=== PATIENT | female | born 1990 | race Two or more races ===

== ENCOUNTER 2019-07-01 20:51 | Emergency (ER) | payer OTHER ==
[~2019-07-01] VITALS: Ht 180.3 cm; Wt 74.2 kg
[2019-07-01] MEDS ORDERED: PROPARACAINE OPHTH 0.5%, 15ML ONE (22:02)
[2019-07-01] MEDS ORDERED: FLUORESCEIN OPHTHALMIC 1 MG STRIP ONE (22:02)
[2019-07-01] MEDS ORDERED: BUPIVACAINE 0.25% ONE (22:22)
[2019-07-01] MEDS ORDERED: LIDOCAINE-MPF 1%, 5ML ONE (22:22)
[2019-07-01] MEDS ORDERED: ONDANSETRON ODT 8 MG ONE (22:36)
[2019-07-01 22:37] LABS: BASOPHILS # (AUTO) 0.02 x10^3/uL (0-0.1); BASOPHILS % (AUTO) 0 % (0-1); EOSINOPHILS # (AUTO) 0.03 x10^3/uL (0-0.4); EOSINOPHILS % (AUTO) 0 % (1-7); LYMPHOCYTES # (AUTO) 0.98 x10^3/uL (1-3.4); LYMPHOCYTES % (AUTO) 13 % (22-44); MD NO; MEAN CORPUSCULAR HEMOGLOBIN 23.6 pg (27.0-34.8); MEAN CORPUSCULAR HGB CONC 31.2 g/dL (32.4-35.8); MEAN CORPUSCULAR VOLUME 75.6 fL (80-100); MEAN PLATELET VOLUME 7.2 fL (7.4-10.4); MONOCYTES # (AUTO) 0.62 x10^3/uL (0.2-0.8); MONOCYTES % (AUTO) 8 % (2-9); NEUTROPHILS # (AUTO) 6.22 x10^3/uL (1.8-6.8); NEUTROPHILS % (AUTO) 79 % (42-75); PLATELET COUNT 399 x10^3/uL (130-400); RED BLOOD COUNT 4.33 x10^6/uL (3.82-5.3)
--- NOTE | 2019-07-01 22:38 | NUR ---
PATIENT MEDICATED FOR NAUSEA.
[2019-07-01 22:46] LABS: ALBUMIN 2.9 g/dL (3.4-5.0); ANION GAP 7 mmol/L (5-15); CALCIUM 8.8 mg/dL (8.5-10.1); CHLORIDE 106 mmol/L (98-107)
[2019-07-01 22:49] LABS: ALANINE AMINOTRANSFERASE 18 U/L (12-78); ALKALINE PHOSPHATASE 21 U/L (45-117); BILIRUBIN,TOTAL 0.2 mg/dL (0.2-1.0); CREATININE 0.68 mg/dL (0.55-1.02); TOTAL PROTEIN 6.8 g/dL (6.4-8.2)
[2019-07-01] MEDS ORDERED: ONDANSETRON ODT 8 MG PO ONE (23:00)
[2019-07-01] MEDS ORDERED: ACETAMINOPHEN 500 MG TABLET PO ONE (23:30)
[2019-07-01] MEDS ORDERED: ACETAMINOPHEN 500 MG TABLET ONE (23:57)
[2019-07-02] MEDS ORDERED: ACETAMINOPHEN 500 MG TABLET ONE (00:01)
--- NOTE | 2019-07-02 00:05 | NUR ---
RE-EVALUATION DONE. PATIENT DISCHARGED WITH INSTRUCTION. VERBALIZED UNDERSTANDING. TYLENOL GIVEN PRIOR DISCHARGE.
[2019-07-02 00:08] VITALS: BP 123/74
== END 2019-07-02 00:10 | disposition home or self-care (01) ==
LOC: ED 07-02 00:04
DX: O99.411 Diseases of the circulatory system complicating pregnancy, first trimester (principal); G44.219 Episodic tension-type headache, not intractable; Z3A.01 Less than 8 weeks gestation of pregnancy
CPT/HCPCS: 36415; 80053; 85025; 99283; Q0162